=== PATIENT | female | born 1960 | race Caucasian/White ===

== ENCOUNTER 2016-10-30 10:50 | Day surgery (SDC) | payer OTHER ==
[2016-10-25 14:28] VITALS: BMI 28.5
[2016-10-30 11:13] LABS: ADD MANUAL DIFF? NO
[2016-10-30 11:18] LABS: BASO # 0.02 K/mm3 (0.0-2.0); BASO % 0.7 % (0.0-3.0); EOS # 0.1 (0.0-0.7); GRAN # 1.42 (1.4-6.5); HEMATOCRIT 37.3 % (36.0-48.0); LYMPH # 1.2 (1.2-3.4); LYMPH % 40.5 % (22.0-35.0); MEAN CORPUSCULAR HEMOGLOBIN 28.4 pg (25.0-35.0); MEAN CORPUSCULAR HGB CONC 33.8 g/dl (31.0-37.0); MEAN PLATELET VOLUME 10.2 fl (7.0-11.0); MONO # 0.3 (0.1-0.6); MONO % 8.8 % (1.0-6.0); PLATELET COUNT 186 10^3/uL (120.0-450.0); RED CELL DISTRIBUTION WIDTH 13.1 % (11.5-14.5)
[2016-10-30 11:28] LABS: BLOOD UREA NITROGEN 12 mg/dL (7-21); CARBON DIOXIDE 30 mmol/L (21-33); CHLORIDE 100 mmol/L (95-110); GFR AFRICAN-AMERICAN > 60; GLUCOSE,RANDOM 98 mg/dL (70-110); PARTIAL THROMBOPLASTIN TIME 26.1 Seconds (23.7-30.8); POTASSIUM 4.3 mmol/L (3.6-5.0); SODIUM 141 mmol/L (132-148)
--- NOTE | 2016-10-30 12:14 | CP.SDSHP ---
Same Day Surgery H & P - History Proposed Procedure: Cat scan guided liver biopsy Pre-Op Diagnosis: Breast Ca - Previous Medical/Surgical History Cardiac: Other (low BP) Pulmonary: Asthma Endocrine/Metabolic: Diabetes (Was told she has pre diabetes) Misc: Other (hyperlipidemia,glaucoma,history of Ca,Vitamin D deficiency,low folic acid level) Pain: 0. No Pain Comments: R Breast Ca was treated with chemotherapy,then mastectomy (2004) followed by radiation(2005). PEt scan in October 2016 showed abnormalities in the liver. Previous Surgical History: R mastectomy. Hysterectomyand bladder lift. Laser surgery x 2 for glaucoma - Allergies Allergies: Allergies No Known Allergies Allergy (Verified 10/25/16 14:28) - Physical Exam General Appearance: Well nourished female Vital Signs: Vital Signs 10/30/16 11:30 Temperature 98.5 F Pulse Rate 84 Respiratory 20 Rate Blood Pressure 118/78 O2 Sat by Pulse 100 Oximetry Mental Status: Alert & Oriented x3 Neuro: WNL Heart: WNL Lungs: WNL - {Optional Preform as Required} Breast: Other (S/P R mastectomy) Abdomen: WNL - Date & Time Date: 10/30/16 Time: 12:10 Short Stay Discharge - Short Stay Discharge Admitting Diagnosis/Reason for Visit: BREAST CA Z85.3
[2016-10-30] MEDS ORDERED: Midazolam 2 MG/2 ML VIAL ONE (13:23)
[2016-10-30] MEDS ORDERED: Oxycodone/Acetaminophen 5/325 mg Tab PO PRN (13:54)
[2016-10-30] MEDS ORDERED: Sodium Chloride 0.45% 1,000 ML IV SCH (14:00)
[2016-10-30 14:53] VITALS: RESP 20; TEMP 98.2
[2016-10-30 15:30] VITALS: BP 108/60; PULSE 69; O2SAT 97
--- NOTE | 2016-10-30 19:10 | CT ---
PROCEDURE: CT guided liver biopsy. HISTORY: Breast CA. Multiple liver lesions. Evaluate for metastatic disease. PHYSICIAN(S): Amos Kaiser MD. TECHNIQUE: The relative risks and indications of the procedure were explained to the patient and consent obtained. The patient was placed supine on the CT scanner and preliminary images through the liver obtained. Conscious sedation and monitoring were provided throughout the procedure by a nurse. There is a 7 cm low-attenuation mass in the right lobe of the liver posteriorly.. A right lateral approach was selected and the area prepped and draped in the usual sterile fashion. 1% Xylocaine was used to anesthetize the skin and soft tissues. A 17-gauge guiding needle was advanced into the 7 cm right posterior liver mass. Its position was confirmed with CT. Using coaxial technique, multiple core biopsies were obtained. The postprocedure images show no evidence of significant hemorrhage. IMPRESSION: 1. CT-guided liver biopsy as described above.
== END 2016-10-30 16:50 | disposition home or self-care (01) ==
LOC: SDS 10:50
PROVIDERS: ATTEND Radiology Vascular & Interventional Radiology
DX: C78.7 Secondary malignant neoplasm of liver and intrahepatic bile duct (principal); Z85.3 Personal history of malignant neoplasm of breast; Z90.11 Acquired absence of right breast and nipple; E78.5 Hyperlipidemia, unspecified; E55.9 Vitamin D deficiency, unspecified; J45.909 Unspecified asthma, uncomplicated; Z92.21 Personal history of antineoplastic chemotherapy
CPT/HCPCS: 36415; 47000; 77012; 80048; 85025; 85610; 85730; 88307; J2250; J2405; J3010; J7030

== ENCOUNTER 2016-11-24 10:08 | Day surgery (SDC) | payer OTHER ==
[2016-10-25 14:28] VITALS: BMI 28.5
[2016-11-24 10:33] LABS: HEMATOCRIT 36.5 % (36.0-48.0); MEAN CELL VOLUME 84.5 fL (80.0-105.0); MEAN CORPUSCULAR HEMOGLOBIN 28.7 pg (25.0-35.0); MEAN PLATELET VOLUME 9.5 fl (7.0-11.0); RED CELL DISTRIBUTION WIDTH 13.6 % (11.5-14.5)
[2016-11-24 10:42] LABS: WHITE BLOOD COUNT 2.1 10^3/ul (4.5-11.0)
[2016-11-24 10:43] LABS: BLOOD UREA NITROGEN 10 mg/dL (7-21); CALCIUM 9.3 mg/dL (8.4-10.5); CARBON DIOXIDE 30 mmol/L (21-33); CHLORIDE 101 mmol/L (98-107); GFR AFRICAN-AMERICAN > 60; GLUCOSE,RANDOM 90 mg/dL (70-110); POTASSIUM 4.3 mmol/L (3.6-5.0); SODIUM 140 mmol/L (132-148)
--- NOTE | 2016-11-24 11:02 | CP.SDSHP ---
Same Day Surgery H & P - History Proposed Procedure: Insertion of venous port Pre-Op Diagnosis: Breast Ca - Previous Medical/Surgical History Pulmonary: Asthma (this developed after radiation therapy) Misc: Other (history of glaucoma,hyperlipidemia,low BP, Vit D deficiency,low folic acid level) Comments: History of Breast Ca,,recent PET scan showed something on the liver, was advised to get a port for chemotherapy Previous Surgical History: R mastectomy. Hysterectomy. [place] lift. Liver biopsy. Laser surgery x 2. Gastric sleeve - Allergies Allergies: Allergies No Known Allergies Allergy (Verified 10/25/16 14:28) - Physical Exam General Appearance: Well nourished female Mental Status: Alert & Oriented x3 Neuro: WNL Heart: WNL Lungs: WNL - {Optional Preform as Required} Breast: Other (S/P R mastectomy) Abdomen: WNL Integument: WNL - Date & Time Date: 11/24/16 Time: 11:02 Short Stay Discharge - Short Stay Discharge Admitting Diagnosis/Reason for Visit: BREAST CA Z85.3 Disposition: HOME/ ROUTINE Referrals: Aristeo Avila MD [Primary Care Provider] -
[2016-11-24 11:08] LABS: INR 0.93 (0.93-1.08); PARTIAL THROMBOPLASTIN TIME 27.3 Seconds (23.7-30.8)
[2016-11-24] MEDS ORDERED: Lidocaine 2% Inj (20ml) ONE (12:13)
[2016-11-24] MEDS ORDERED: Midazolam 2 MG/2 ML VIAL ONE ×2 (12:14→13:37)
[2016-11-24] MEDS ORDERED: Oxycodone/Acetaminophen 5/325 mg Tab PO PRN (14:21)
[2016-11-24] MEDS ORDERED: Sodium Chloride 0.45% 1,000 ML IV SCH (14:30)
--- NOTE | 2016-11-24 14:40 | VASCULAR ---
PROCEDURE: Ultrasound and fluoroscopic right internal jugular venous access port. CLINICAL HISTORY: Metastatic breast carcinoma.Venous port for chemotherapy. PHYSICIAN(S): Amos Kaiser M.D. TECHNIQUE: The relative risks and indications of the procedure were explained to the patient and consent obtained. The patient was placed supine on the arteriogram table and the right neck and chest prepped and draped in the usual sterile fashion. Conscious sedation monitoring was provided throughout the procedure by a nurse. Antibiotics were given prior to the procedure. Under direct ultrasound guidance, the right internal jugular vein was punctured with a micro-puncture set. A 0.035 angled Glidewire was advanced into the IVC. A 4 cm incision was made below the right clavicle and the pocket blunted dissected. A 8 Italian single-lumen catheter, 19 cm long, was advanced to the SVC/RA junction. The catheter was trimmed and attached to the port. The port aspirates and injects easily. The port was placed in the pocket and closed in 2 layers. The patient tolerated the procedure well. IMPRESSION: Ultrasound and fluoroscopically placed right internal jugular venous access port.
[2016-11-24 15:18] VITALS: BP 114/72; PULSE 65; RESP 20; TEMP 98; O2SAT 97
[2016-11-24] MEDS ORDERED: Oxycodone/Acetaminophen 5/325 mg Tab ONE (15:51)
== END 2016-11-24 17:45 | disposition home or self-care (01) ==
LOC: SDS 10:08
PROVIDERS: ATTEND Radiology Vascular & Interventional Radiology
DX: Z45.2 Encounter for adjustment and management of vascular access device (principal); J45.909 Unspecified asthma, uncomplicated; H40.9 Unspecified glaucoma; E78.5 Hyperlipidemia, unspecified; I95.9 Hypotension, unspecified; E55.9 Vitamin D deficiency, unspecified; Z85.3 Personal history of malignant neoplasm of breast; Z90.11 Acquired absence of right breast and nipple; Z90.710 Acquired absence of both cervix and uterus
CPT/HCPCS: 36415; 36561; 76937; 77001; 80048; 85027; 85610; 85730; 99152; C1788; J0690; J1644; J2250; J2405; J3010; J7030

== ENCOUNTER 2017-11-06 20:58 | Emergency (ER) | payer BC ==
[2017-11-06 20:59] VITALS: BMI 28.5
--- NOTE | 2017-11-06 21:53 | ED PDOC ---
Arrival/HPI - General Chief Complaint: Flu-like Symptoms Time Seen by Provider: 11/06/17 21:29 Historian: Patient - History of Present Illness Narrative History of Present Illness (Text): 11/06/17 21:53 Mundo Caldwell is a 57 year old female, whose past medical history includes metastatic breast cancer, right mastectomy, and hyperlipidemia, who presents to the Emergency department complaining of generalized weakness. Patient states she has been experiencing generalized weakness with associated fatigue and chills since yesterday. Patient notes she recently started another round of Ibrance yesterday, which she has been taking since 03/25. Patient also reports 3 episodes of vomiting earlier today. Patient spoke with her oncologist over the phone earlier today, who advised her to come to the ER for further evaluation. Patient denies any chest pain, shortness of breath, nausea, vomiting , diarrhea, back pain, neck pain, headache, dizziness, or any other complaints. PMD: Dr. Austin Alonzo/Onc: Dr. Vicente Symptom Onset: Gradual Symptom Course: Unchanged Activities at Onset: Light Context: Home Past Medical History - Provider Review Nursing Documentation Reviewed: Yes - Infectious Disease Hx of Infectious Diseases: None - Tetanus Immunization Tetanus Immunization: Unknown - Cardiac Hx Pacemaker: No - Neurological Hx Paralysis: No - Hematological/Oncological Hx Blood Transfusions: No Hx Blood Transfusion Reaction: No - Musculoskeletal/Rheumatological Hx Musculoskeletal Disorders: Yes (HAS "WEAK BONES") - Psychiatric Hx Emotional Abuse: No Hx Physical Abuse: No Hx Substance Use: No - Anesthesia Hx Anesthesia Reactions: No Hx Malignant Hyperthermia: No - Suicidal Assessment Feels Threatened In Home Enviroment: No Family/Social History - Physician Review Nursing Documentation Reviewed: Yes Family/Social History: Unknown Family HX Hx Alcohol Use: No Hx Substance Use: No Hx Substance Use Treatment: No Allergies/Home Meds Allergies/Adverse Reactions: Allergies No Known Allergies Allergy (Verified 10/25/16 14:28) Home Medications: Home Meds Medication Instructions Recorded Confirmed Ergocalciferol (Vitamin D2) 50,000 unit PO SAT 10/25/16 11/24/16 [Vitamin D2] Folic Acid 1 mg PO QAM 10/25/16 11/24/16 Midodrine [Proamatine] 5 mg PO TID 10/25/16 11/24/16 Ipratropium [place] [Ipratropium 42 mcg NS TID 11/24/16 11/24/16 [place] 30 ml] Levofloxacin [Levaquin] 500 mg PO DAILY 11/24/16 11/24/16 oxyCODONE/Acetaminophen [Percocet 1 tab PO BID PRN 11/24/16 11/24/16 5/325 mg Tab] Review of Systems - Physician Review All systems were reviewed & negative as marked: Yes - Review of Systems Constitutional: Fatigue, Other (+generalized weakness, +chills). absent: Fevers Eyes: Normal ENT: Normal Respiratory: Normal. absent: SOB, Cough Cardiovascular: Normal. absent: Chest Pain Gastrointestinal: Vomiting. absent: Abdominal Pain Genitourinary Female: Normal. absent: Dysuria, Frequency, Hematuria, Urine Output Changes Musculoskeletal: Normal. absent: Back Pain, Neck Pain Skin: Normal. absent: Rash Neurological: Normal. absent: Headache, Dizziness Endocrine: Normal Hemo/Lymphatic: Normal Psychiatric: Normal Physical Exam Vital Signs Reviewed: Yes Vital Signs Temp Pulse Resp BP Pulse Ox 11/06/17 22:19 97.5 F L 72 18 100/63 100 Temperature: Afebrile Blood Pressure: Normal Pulse: Regular Respiratory Rate: Normal Appearance: Positive for: Well-Appearing, Non-Toxic, Comfortable Pain Distress: None Mental Status: Positive for: Alert and Oriented X 3 - Systems Exam Head: Present: Atraumatic, Normocephalic Pupils: Present: PERRL Extroacular Muscles: Present: EOMI Conjunctiva: Present: Normal Mouth: Present: Moist Mucous Membranes Neck: Present: Normal Range of Motion Respiratory/Chest: Present: Clear to Auscultation, Good Air Exchange. No: Respiratory Distress, Accessory Muscle Use Cardiovascular: Present: Regular Rate and Rhythm, Normal S1, S2. No: Murmurs Abdomen: No: Tenderness, Distention, Peritoneal Signs Back: Present: Normal Inspection Upper Extremity: Present: Normal Inspection. No: Cyanosis, Edema Lower Extremity: Present: Normal Inspection. No: Edema Neurological: Present: GCS=15, CN II-XII Intact, Speech Normal Skin: Present: Warm, Dry, Normal Color. No: Rashes Psychiatric: Present: Alert, Oriented x 3, Normal Insight, Normal Concentration Medical Decision Making ED Course and Treatment: 11/06/17 21:53 Impression: 57 year old female complaining of generalized weakness, fatigue, chills, and vomiting. Plan: -- Labs, lipase -- Urinalysis, urine cultures -- Reassess and disposition Progress Notes: 11/07/17 02:19 Chest X-ray reviewed, shows no acute processes. 11/07/17 03:[address] Avila, who is aware and agrees with plan. States pt is stable for d/c home on Reglan and Zofran. Case discussed with Dr. Vicente, oncologist, who is aware and agrees with plan to d/c pt home. - Lab Interpretations Lab Results: 11/06/17 23:00 11/06/17 23:00 Lab Results 11/07/17 01:30: Urine Color Yellow, Urine Appearance Clear, Urine pH 6.0, Ur Specific [place] 1.020, Urine Protein Negative, Urine Glucose (UA) Negative, Urine Ketones Negative, Urine Blood Negative, Urine Nitrate Negative, Urine Bilirubin Negative, Urine Urobilinogen 0.2, Ur Leukocyte Esterase Trace H, Urine RBC 0 - 2, Urine WBC 1 - 3, Ur Epithelial Cells 0 - 2 11/06/17 23:00: WBC 2.8 L* D, RBC 3.90, Hgb 12.1, Hct 35.2 L, MCV 90.3, MCH 31.0 , MCHC 34.4, RDW 13.0, Plt Count 155, MPV 9.8 11/06/17 23:00: Sodium 137, Potassium 4.0, Chloride 104, Carbon Dioxide 25, Anion Gap 12, BUN 22 H, Creatinine 0.8, Est GFR ( Amer) > 60, Est GFR ( Non-Af Amer) > 60, Random Glucose 100, Calcium 9.3, Total Bilirubin 0.2, AST 21 , ALT 23, Alkaline Phosphatase 51, Total Protein 7.0, Albumin 4.2, Globulin 2.8 , Albumin/Globulin Ratio 1.5, Lipase 96 I have reviewed the lab results: Yes - RAD Interpretation Radiology Orders: 11/07/17 00:49 CHEST PORTABLE [RAD] Stat Yarn Comber: ED Physician - Medication Orders Current Medication Orders: Discontinued Medications Sodium Chloride (Sodium Chloride 0.9%) 1,000 mls @ 999 mls/hr IV .Q1H1M STA Stop: 11/07/17 01:45 Last Admin: 11/07/17 01:36 Dose: 999 mls/hr eMAR Start Stop Document 11/07/17 01:36 AD (Rec: 11/07/17 01:37 AD [id number]) Intravenous Solution Start Date 11/07/17 Start Time 01:37 Ondansetron HCl (Zofran Inj) 4 mg IVP ONCE ONE Stop: 11/07/17 00:46 Last Admin: 11/07/17 01:37 Dose: 4 mg IVP Administration Document 11/07/17 01:37 AD (Rec: 11/07/17 01:37 AD [id number]) Charges for Administration # of IVP Administrations 1 - Scribe Statement The provider has reviewed the documentation as recorded by the Ashlyn Maynard Provider Scribe Attestation: All medical record entries made by the Scribe were at my direction and personally dictated by me. I have reviewed the chart and agree that the record accurately reflects my personal performance of the history, physical exam, medical decision making, and the department course for this patient. I have also personally directed, reviewed, and agree with the discharge instructions and disposition. Disposition/Present on Arrival - Present on Arrival Any Indicators Present on Arrival: No History of DVT/PE: No History of Uncontrolled Diabetes: No Urinary Catheter: No History of Decub. Ulcer: No History Surgical Site Infection Following: None - Disposition Have Diagnosis and Disposition been Completed?: Yes Diagnosis: Nausea & vomiting, Drug reaction Disposition: HOME/ ROUTINE Disposition Time: 03:19 Patient Plan: Discharge Condition: GOOD Discharge Instructions (ExitCare): Nausea and Vomiting With Cancer Treatment, Nausea and Vomiting, Adult, Nausea and Vomiting, Adult (DC) Additional Instructions: Take meds as prescribed/follow up with Dr.Haque vasquez as per his instructions. Prescriptions: Metoclopramide HCl [Reglan] 5 mg PO TID PRN #15 tablet PRN Reason: Nausea/Vomiting Ondansetron [Zofran Odt] 4 mg PO Q6 PRN #16 odt PRN Reason: Nausea/Vomiting Referrals: Aristeo Avila MD [Primary Care Provider] - Follow up with primary Forms: [employer] (Lao)
[2017-11-06 22:38] VITALS: RESP 18; TEMP 97.5; O2SAT 100
[2017-11-06 23:20] LABS: HEMOGLOBIN 12.1 g/dL (12.0-16.0); MEAN CELL VOLUME 90.3 fl (80.0-105.0); MEAN CORPUSCULAR HGB CONC 34.4 g/dl (31.0-37.0); MEAN PLATELET VOLUME 9.8 fl (7.0-11.0); RBC 3.9 10^6/uL (3.5-6.1)
[2017-11-06 23:22] LABS: WHITE BLOOD COUNT 2.8 10^3/ul (4.5-11.0)
[2017-11-06 23:27] LABS: ALB/GLOB RATIO 1.5 (1.1-1.8); ALBUMIN 4.2 g/dL (3.0-4.8); ALT/SGPT 23 U/L (7-56); AST/SGOT 21 U/L (14-36); BLOOD UREA NITROGEN 22 mg/dL (7-21); CALCIUM 9.3 mg/dL (8.4-10.5); GFR AFRICAN-AMERICAN > 60; GFR NON-AFRICAN AMERICAN > 60; LIPASE 96 U/L (23-300)
[2017-11-07] MEDS ORDERED: Sodium Chloride 0.9% 1,000 ML IV STA (00:45)
[2017-11-07 02:04] LABS: URINE BILIRUBIN NEGATIVE (NEGATIVE); URINE BLOOD NEGATIVE (NEGATIVE); URINE GLUCOSE (UA) NEGATIVE (NEGATIVE); URINE LEUKOCYTE ESTERASE TRACE Leu/uL (NEGATIVE); URINE PROTEIN NEGATIVE mg/dL (<30 mg/dL); URINE UROBILINOGEN 0.2 E.U./dL (<1 E.U./dL)
[2017-11-07 02:12] LABS: URINE APPEARANCE CLEAR (CLEAR); URINE COLOR YELLOW (YELLOW)
[2017-11-07 02:23] LABS: URINE EPITHELIAL CELLS 0 - 2 /hpf (0-5); URINE RBC 0 - 2 /hpf (0-2)
[2017-11-07 07:27] VITALS: BP 131/85; PULSE 78
--- NOTE | 2017-11-07 09:15 | RAD ---
HISTORY: Chills. COMPARISON: 07/11/2017 FINDINGS: LUNGS: No active pulmonary disease. PLEURA: No significant pleural effusion identified, no pneumothorax apparent. CARDIOVASCULAR: Normal. OSSEOUS STRUCTURES: No significant abnormalities. VISUALIZED UPPER ABDOMEN: Normal. OTHER FINDINGS: None. IMPRESSION: No active disease.
== END 2017-11-07 03:30 | disposition home or self-care (01) ==
LOC: ED 20:58
DX: R11.2 Nausea with vomiting, unspecified (principal); T50.995A Adverse effect of other drugs, medicaments and biological substances, initial encounter; E78.5 Hyperlipidemia, unspecified; Z85.3 Personal history of malignant neoplasm of breast
CPT/HCPCS: 71045; 80053; 81001; 83690; 85027; 96374; 99284; J2405; J7040